=== PATIENT | female | born 1980 | race Native Hawaiian/Other Pacific Islander ===

== ENCOUNTER 2018-12-19 21:03 | Emergency (ER) | payer BC ==
[~2018-12-19] VITALS: Ht 162.6 cm; Wt 88.9 kg
[2018-12-19 21:05] VITALS: TEMP 98.2
[2018-12-19] MEDS ORDERED: BUPR1SUBFM SL (21:14)
[2018-12-19] MEDS ORDERED: AMLODIPINE BESYLATE PO (21:14)
[2018-12-19 21:51] VITALS: BP 142/101
== END 2018-12-19 21:51 | disposition home or self-care (01) ==
LOC: ED 21:03
PROC: 0HQFXZZ Repair Right Hand Skin, External Approach (ICD-10-PCS; principal; 2018-12-19)
DX: S61.011A Laceration without foreign body of right thumb without damage to nail, initial encounter (principal); W26.8XXA Contact with other sharp object(s), not elsewhere classified, initial encounter
CPT/HCPCS: 90471; 90715; 99283

== ENCOUNTER 2020-02-04 05:19 | Emergency (ER) | payer BC ==
[~2020-02-04] VITALS: Ht 167.6 cm; Wt 81.6 kg
[~2020-02-04 05:19] MED LIST: AMLODIPINE BESYLATE PO; BUPR1SUBFM SL
[2020-02-04 05:25] VITALS: BP 164/100; TEMP 97.3
[2020-02-04 05:44] LABS: PLATELET COUNT 191 K/uL (152-353)
[2020-02-04 05:50] LABS: POTASSIUM 3.1 mmol/L (3.6-5.2)
== END 2020-02-04 09:00 | disposition still patient (30) ==
LOC: ED 05:19
PROVIDERS: Family Medicine
DX: R11.2 Nausea with vomiting, unspecified (principal); R10.13 Epigastric pain; K21.9 Gastro-esophageal reflux disease without esophagitis
CPT/HCPCS: 36415; 80053; 81000; 85027; 96360; 96365; 96374; 96375; 99284; J1885; J2405; Q9963